=== PATIENT | male | born 1945 | race Caucasian/White ===

== ENCOUNTER 2016-10-28 20:54 | Emergency (ER) | payer OTHER, MEDICARE ==
[~2016-10-28 20:54] MED LIST: ASPIRIN81 M2 PO; ENALAPRIL MALEA10 MG PO; ENALAPRIL MALEA20 MG PO; MELOXICAM7.5 MG PO; NIACIN750 MG PO; TYLENOL ARTHRI650 MG PO
[2016-10-28 21:13] LABS: CREATININE 1.2 mg/dL (0.6-1.3); POTASSIUM 4.8 mEq/L (3.7-5.4)
[2016-10-28 21:30] LABS: INTER. NORMALIZED RATIO 1.3; PROTHROMBIN TIME 13.5 (9.2-11.2); PTT 54.7 (25-32)
[2016-10-28 21:32] LABS: AMYLASE 75 IU/L (1-118); CHLORIDE 107 mEq/L (99-109); POTASSIUM 4.7 mEq/L (3.7-5.4); SODIUM 143 mEq/L (136-147)
[2016-10-28 21:33] LABS: GLUCOSE 248 mg/dL (70-99)
[2016-10-28 21:35] LABS: ANION GAP 27 MEQ/L (2-14)
[2016-10-28 21:36] LABS: SERUM ETHYL ALCOHOL < 10 mg/dL
[2016-10-28 21:37] LABS: GFR ESTIMATE (CALCULATED) 58 mL/min/
[2016-10-28 21:38] LABS: UREA NITROGEN (BUN) 15 mg/dL (9-23)
[2016-10-28 21:39] LABS: TROP-I INTERPRETATION NEGATIVE; TROPONIN-I 0.12 ng/mL (0.0-0.30)
[2016-10-28 21:40] LABS: LIPASE 49 U/L (1.0-51.0)
[2016-10-28 22:03] LABS: EOSINOPHIL COUNT 0.2 K/uL (0-0.3); HEMATOCRIT 41.5 % (38.0-50.0); IMMATURE GRANULOCYTE (%) 3.8 % (0.0-0.7); IMMATURE GRANULOCYTE COUNT 0.4 K/uL; INSTRUMENT ABS NEUTROPHIL CT 5.1 K/uL; LYMPHOCYTE COUNT 4.7 K/uL (1.0-2.8); MCH 31.8 PG (29.0-34.0); MCHC 28.4 G/DL (30.0-36.0); MCV 111.9 FL (86-99); MEAN PLAT.VOLUME 10.3 uM^3 (9.0-12.4); MONOCYTE COUNT 1.2 K/uL (0-0.8); NEUTROPHIL (%) 43.6 % (45-76); NEUTROPHIL COUNT 5.1 K/uL (1.8-6.4); NRBC (%) 0.3 /100 WBC (0-0); PLATELET COUNT 129 K/uL (156-360); RBC DIS.WIDTH-CV 12.7 % (11.8-14.6); RBC DIS.WIDTH-SD 53.6 % (39-53); RED BLOOD COUNT 3.71 M/uL (4.00-5.50); WHITE BLOOD COUNT 11.6 K/uL (4.1-10.2)
== END 2016-10-28 21:22 ==
LOC: EME 20:54
PROVIDERS: Emergency Medicine
DX: I46.9 Cardiac arrest, cause unspecified (principal); E87.2 Acidosis; R73.9 Hyperglycemia, unspecified; Z79.82 Long term (current) use of aspirin
CPT/HCPCS: 80047; 80048; 81003; 82150; 83605; 83690; 84484; 85025; 85610; 85730; 86850; 86900; 86901; 87040; 87077; 87186; 87801; 93005; 94002; 99281; 99285; G0480; J0171; J7050